=== PATIENT | female | born 1990 | race Caucasian/White ===

== ENCOUNTER 2018-07-23 20:19 | Emergency (ER) | payer OTHER ==
[~2018-07-23] VITALS: Ht 154.9 cm; Wt 54.4 kg
[2018-07-23 20:35] VITALS: BP 117/66
--- NOTE | 2018-07-23 20:45 | NUR ---
PT TRIAGED, VSS, SENT BACK TO [facility]
--- NOTE | 2018-07-23 21:30 | NUR ---
PATIENT AMBULATED TO ER BED 10.
--- NOTE | 2018-07-23 21:34 | NUR ---
27 Y/O F C/O ABSCESS ON L FOOT X2 WEEKS AND ABSCESS ON L FA X2 DAYS. PT REPORTS IV DRUG USE ON SITES. PT DENIES N/V/D; AAOX4, PERRL, WITH EVEN AND STEADY GAIT; LUNGS CLEAR BL, BREATHING UNLABORED; HR EVEN AND REGULAR, BL PERIPHERAL PULSES PRESENT; BS ACTIVE X4, NO TENDERNESS TO PALPATION, NO HEPATOSPLENOMEGALLY PALPATED, RESONANT TO PERCUSSION; PT DENIES ANY FEVER, CP, SOB, OR COUGH AT THIS TIME; PT STATES 7/10 PAIN AT THIS TIME; VSS; PATIENT POSITIONED FOR COMFORT; HOB ELEVATED; BEDRAILS UP X2; BED DOWN.
[2018-07-23] MEDS ORDERED: KETOROLAC 60 MG/2 ML VIAL IM ONE (21:45)
[2018-07-23] MEDS ORDERED: LIDOCAINE 1% 500 MG/50 ML VIAL INJ SCH (21:45)
[2018-07-23] MEDS ORDERED: CLINDAMYCIN 600 MG/4 ML VIAL IM ONE (21:45)
[2018-07-23] MEDS ORDERED: LIDOCAINE MPF 1% 5mL VIAL ONE (21:58)
--- NOTE | 2018-07-23 22:00 | NUR ---
DR. SCOTT AT BEDSIDE DOING I&D
--- NOTE | 2018-07-23 22:23 | NUR ---
PTS WOUND ON LEFT FOOT AND RIGHT FOREARM COVERRED WITH NON ADHIRINT GAUZE AND WRAPPED WITH ROLL GAUZE
--- NOTE | 2018-07-23 22:35 | NUR ---
Kita zamorano in ED - 07/23/18 at 2236 by MEDDCV PT WILL RECEIVE NEW MEDICATIONS BEFORE D/C. AWAITING ORDERS FROM .
[2018-07-23 22:42] VITALS: BP 126/69
--- NOTE | 2018-07-23 22:43 | NUR ---
Patient discharged with v/s stable. Written and verbal after care instructions given and explained. Patient alert, oriented and verbalized understanding of instructions. Ambulatory with steady gait. All questions addressed prior to discharge. ID band removed. Patient advised to follow up with PMD. Rx of BACTRIM, IBUPROPHEN given. Patient educated on indication of medication including possible reaction and side effects. Opportunity to ask questions provided and answered.
== END 2018-07-23 22:43 | disposition home or self-care (01) ==
LOC: MED 20:19
DX: L02.612 Cutaneous abscess of left foot (principal); L02.413 Cutaneous abscess of right upper limb; F17.210 Nicotine dependence, cigarettes, uncomplicated
CPT/HCPCS: 10061; 90471; 90715; 96372; 99284; J1885; J2001; J3490

== ENCOUNTER 2019-04-05 16:36 | Emergency (ER) | payer OTHER ==
[~2019-04-05] VITALS: Ht 154.9 cm; Wt 49.9 kg
--- NOTE | 2019-04-05 16:58 | NUR ---
NO ANSWER IN ER LOBBY
[2019-04-05 17:31] VITALS: BP 131/77
--- NOTE | 2019-04-05 17:34 | NUR ---
URINE CUP HANDED TO PT FOR SAMPLE
--- NOTE | 2019-04-05 18:43 | NUR ---
PATIENT LEFT WITHOUT BEING SEEN BY DR. PAREDES. NO FURTHER CARE PROVIDED FOR PATIENT.
--- NOTE | 2019-04-05 18:58 | NUR ---
PT TAKEN TO X-RAY.
--- NOTE | 2019-04-05 21:41 | NUR ---
CALLED FOR PT, NO ANSWER IN ER LOBBY OR OUTSIDE OF ER, PT LWBS
--- NOTE | 2019-04-05 21:58 | NUR ---
CALLED FOR PT FOR SECOND TIME, NO ANSWER IN ER LOBBY OR OUTSIDE OF ER
--- NOTE | 2019-04-05 22:10 | NUR ---
CALLED FOR PT FOR THIRD TIME, NO ANSWER IN ER LOBBY OR OUTSIDE OF ER
== END 2019-04-05 21:40 | disposition left against medical advice (07) ==
LOC: MED 16:36
DX: M25.561 Pain in right knee (principal); Z53.21 Procedure and treatment not carried out due to patient leaving prior to being seen by health care provider
CPT/HCPCS: 73562; 99281

== ENCOUNTER 2019-04-05 23:25 | Emergency (ER) | payer OTHER ==
[~2019-04-05] VITALS: Ht 154.9 cm; Wt 49.9 kg
[2019-04-05 23:45] VITALS: BP 120/74
--- NOTE | 2019-04-05 23:48 | NUR ---
to lobby a/w bed via wheelchair
--- NOTE | 2019-04-06 01:14 | NUR ---
28 y/o female c/o right leg pain x today at 1300. rates pain 10/10 and describes to as sharp pain on the right knee. denies any injury,truama, or falls. a & o x4. vss. unable to ambulate d/t pain. wheelchaired in. tenderness to touch on right knee. right knee shows swollen,redness. lung sounds clear all throughout. heart sound s1s2 present. nka. omh: preclampsia, gdm.
--- NOTE | 2019-04-06 01:14 | NUR ---
BIB WHEELCHAIR TO ER BED 1
[2019-04-06] MEDS ORDERED: NACL 0.9% 1,000 ML IV SCH (02:13)
[2019-04-06] MEDS ORDERED: KETOROLAC 30 MG/ML VIAL IVP ONE (02:15)
[2019-04-06 03:12] LABS: BASOPHILS # (AUTO) 0.1 K/uL (0.00-0.22); BASOPHILS % (AUTO) 0.5 % (0.0-2.0); EOSINOPHILS # (AUTO) 0.1 K/uL (0-0.4); EOSINOPHILS % (AUTO) 0.4 % (0.0-4.0); HEMATOCRIT 37.2 % (36-48); LYMPHOCYTES # (AUTO) 1.7 K/uL (2.5-16.5); LYMPHOCYTES % (AUTO) 11.1 % (20.5-51.1); MEAN CORPUSCULAR HEMOGLOBIN 27 pg (27-31); MEAN CORPUSCULAR HGB CONC 32 g/dL (33-37); MONOCYTES # (AUTO) 1.6 K/uL (0.8-1.0); MONOCYTES % (AUTO) 10.5 % (1.7-9.3); NEUTROPHILS # (AUTO) 12.1 K/uL (1.8-7.7); NEUTROPHILS % (AUTO) 77.5 % (42.2-75.2); PLATELET COUNT (AUTO) 312 K/uL (140-450); RED BLOOD CELL COUNT(AUTO) 4.43 MIL/uL (4.20-5.40); WHITE BLOOD COUNT (AUTO) 15.7 K/uL (4.8-10.8)
--- NOTE | 2019-04-06 03:47 | NUR ---
PT TRANSFER TO CT VIA W/C.
[2019-04-06 03:50] LABS: APPEARANCE,URINE CLEAR (CLEAR); BILIRUBIN,URINE NEGATIVE (NEGATIVE); BLOOD, URINE NEGATIVE (NEGATIVE); COLOR,URINE YELLOW (YELLOW); LEUKOCYTE ESTERASE ,URINE NEGATIVE (NEGATIVE); NITRITE, URINE NEGATIVE (NEGATIVE); UGLUCOSE NEGATIVE (NEGATIVE)
[2019-04-06] MEDS ORDERED: VANCOMYCIN 1,000 MG in DEXTROSE 5% 250 ML IV ONE (04:20)
[2019-04-06 04:24] LABS: ANION GAP 14.1 (8-16); CARBON DIOXIDE 25.9 mmol/L (21-32); CREATININE 0.6 mg/dL (0.6-1.3)
[2019-04-06 04:27] LABS: ALBUMIN 3.1 g/dL (3.4-5.0)
[2019-04-06] MEDS ORDERED: VANCOMYCIN 1,000 MG VIAL ONE (04:47)
[2019-04-06 04:49] LABS: TOTAL BILIRUBIN 0.2 mg/dL (0.0-1.0)
--- NOTE | 2019-04-06 07:17 | NUR ---
Pt report given to SHANNON GARCIA. Transfer of care at this time.
--- NOTE | 2019-04-06 07:18 | NUR ---
RECEIVED REPORT. PT SLEEPING BUT AROUSABLE WITH NAME STIMULI. PT STATED PAIN RELIEVED. VITALS IN NORMAL RANGE.
[2019-04-06] MEDS ORDERED: LIDOCAINE MPF 1% 10 MG/ML VIAL INJ ONE (09:00)
--- NOTE | 2019-04-06 10:23 | NUR ---
Dr. Rothman is evaluating the patient at bedside.
[2019-04-06] MEDS ORDERED: MORPHINE SULFATE 4 MG/ML SYR IVP ONE ×2 (10:30→15:45)
--- NOTE | 2019-04-06 13:22 | NUR ---
PT RESTING IN BED. STATED PAIN RELIEVED .
[2019-04-06] MEDS ORDERED: LORazepam 2 MG/ML VIAL IVP ONE (15:45)
[2019-04-06 16:09] VITALS: BP 97/46
--- NOTE | 2019-04-06 16:22 | NUR ---
[facility] at bedside for transfer.
--- NOTE | 2019-04-06 16:32 | NUR ---
CALL[place] [facility] [place] GIVEN TO ISABELLE ORTEGA.
--- NOTE | 2019-04-06 16:35 | NUR ---
REPORT GIVEN TO TRANSPORTATION TEAM RN. PT VITALS STABLE AT THIS TIME.
[2019-04-08 06:07] LABS: CHLAMYDIA TRACHOMATIS AMP DNA Negative (Negative)
== END 2019-04-06 16:35 | disposition short-term general hospital (02) ==
LOC: MED 23:25
DX: M00.861 Arthritis due to other bacteria, right knee (principal); F17.210 Nicotine dependence, cigarettes, uncomplicated
CPT/HCPCS: 36415; 71045; 73700; 80053; 81003; 81025; 83605; 85025; 85651; 86140; 87040; 87491; 96361; 96365; 96366; 96375; 96376; 99285; J1885; J2001; J2060; J2270; J3370; J7030; Q0092

== ENCOUNTER 2020-03-22 15:44 | Emergency (ER) | payer OTHER ==
[~2020-03-22] VITALS: Ht 154.9 cm; Wt 49.9 kg
[2020-03-22 15:52] VITALS: BP 119/54
[2020-03-22] MEDS ORDERED: LIDOCAINE MPF 1% 10 MG/ML VIAL INJ ONE (15:55)
[2020-03-22] MEDS ORDERED: IBUPROFEN 600 MG TAB PO ONE (15:55)
--- NOTE | 2020-03-22 15:55 | NUR ---
C/O LAC WOUND TO RIGHT IDEX FINGER S/O CUT BY GLASS CUP X TODAY. PMH:DENIES
--- NOTE | 2020-03-22 16:04 | NUR ---
PTS FINGER LAC WAS CLEAND WITH NS AND BETADINE. PTS PMSC WNL.
[2020-03-22] MEDS ORDERED: IBUPROFEN 600 MG TAB ONE (17:03)
[2020-03-22 17:15] VITALS: BP 119/54
--- NOTE | 2020-03-22 17:15 | NUR ---
Patient discharged with v/s stable. Written and verbal after care instructions given and explained. Patient alert, oriented and verbalized understanding of instructions. Ambulatory with steady gait. All questions addressed prior to discharge. ID band removed. Patient advised to follow up with PMD. Rx of BACITRACIN & IBUPROFEN given. Patient educated on indication of medication including possible reaction and side effects. Opportunity to ask questions provided and answered.
== END 2020-03-22 17:15 | disposition home or self-care (01) ==
LOC: MED 15:44
DX: S61.210A Laceration without foreign body of right index finger without damage to nail, initial encounter (principal); W25.XXXA Contact with sharp glass, initial encounter; Y93.89 Activity, other specified; Y92.89 Other specified places as the place of occurrence of the external cause; Y99.8 Other external cause status
CPT/HCPCS: 12001; 73140; 90715; 99283; J2001

== ENCOUNTER 2022-02-01 17:05 | Emergency (ER) | payer OTHER ==
[~2022-02-01] VITALS: Ht 154.9 cm; Wt 55.1 kg
[2022-02-01 17:47] VITALS: BP 109/66
[2022-02-01] MEDS ORDERED: PRED20TA5 PO (18:14)
[2022-02-01] MEDS ORDERED: KEN.025C TP (18:14)
--- NOTE | 2022-02-01 18:17 | NUR ---
BIB SELF C/O GORDY ARMS, LEGS RASH X 3 WEEKS. DENIES N/V/D;AAOX4 WITH EVEN AND STEADY GAIT; LUNGS CLEAR BL; HR EVEN AND REGULAR; PT DENIES ANY FEVER, CP, SOB, OR COUGH AT THIS TIME; PATIENT STATES PAIN OF 0/10 AT THIS TIME.
[2022-02-01 18:21] VITALS: BP 109/66
--- NOTE | 2022-02-01 18:21 | NUR ---
Patient discharged with v/s stable. Written and verbal after care instructions given and explained. Patient alert, oriented and verbalized understanding of instructions. Ambulatory with steady gait. All questions addressed prior to discharge. ID band removed. Patient advised to follow up with PMD. Rx of DELTASONE & KENALOG given. Patient educated on indication of medication including possible reaction and side effects. Opportunity to ask questions provided and answered.
== END 2022-02-01 18:21 | disposition home or self-care (01) ==
LOC: MED 17:05
DX: L30.9 Dermatitis, unspecified (principal); Z79.899 Other long term (current) drug therapy
CPT/HCPCS: 99283

== ENCOUNTER 2022-08-09 20:17 | Emergency (ER) | payer OTHER ==
[~2022-08-09] VITALS: Ht 154.9 cm; Wt 49.9 kg
[~2022-08-09 20:17] MED LIST: KEN.025C TP; PRED20TA5 PO
[2022-08-09 21:10] VITALS: BP 123/85
--- NOTE | 2022-08-09 21:13 | NUR ---
TO LOBBY A/W BED AMBULATORY
[2022-08-09 21:49] LABS: APPEARANCE,URINE CLEAR (CLEAR); BILIRUBIN,URINE NEGATIVE (NEGATIVE); BLOOD, URINE NEGATIVE (NEGATIVE); COLOR,URINE YELLOW (YELLOW); LEUKOCYTE ESTERASE ,URINE NEGATIVE (NEGATIVE); NITRITE, URINE NEGATIVE (NEGATIVE); UGLUCOSE NEGATIVE (NEGATIVE)
--- NOTE | 2022-08-09 22:18 | NUR ---
PT TO 6
--- NOTE | 2022-08-09 22:26 | NUR ---
ASSUMED CARE . PT HERE FOR EVAL FOR POSS BLADDER INFECTION . +_ DYSURIA, NO HEMATURIA OR FEVER , PAIN DURING SEXUAL INTERCOURSE. MD AT TO EXAMINE
[2022-08-09] MEDS ORDERED: ACETAMINOPHEN 325 MG TAB PO ONE (22:35)
--- NOTE | 2022-08-09 22:53 | NUR ---
PELVIC SET UP DONE
--- NOTE | 2022-08-09 23:16 | NUR ---
ULTRASOUND AT BEDSIDE
--- NOTE | 2022-08-10 00:03 | NUR ---
DR ANGLIN AT BS TO PERFORM PELVIC EXAM ,ABDULAZIZ ORTEGA TO ASSIST, TITO WELL
[2022-08-10] MEDS ORDERED: NAPR-54 PO (01:31)
--- NOTE | 2022-08-10 01:42 | NUR ---
Patient discharged with v/s stable. Written and verbal after care instructions given and explained. Patient verbalized understanding. Ambulatory with steady gait. All questions addressed prior to discharge. Advised to follow up with PMD.
== END 2022-08-10 01:42 | disposition home or self-care (01) ==
LOC: MED 20:17
DX: R10.2 Pelvic and perineal pain (principal); R32 Unspecified urinary incontinence; R82.998 Other abnormal findings in urine; Z79.899 Other long term (current) drug therapy; Z79.1 Long term (current) use of non-steroidal anti-inflammatories (NSAID)
CPT/HCPCS: 76856; 81003; 81025; 87210; 87491; 93976; 99284; Q0092

== ENCOUNTER 2022-08-19 17:50 | Emergency (ER) | payer OTHER ==
[~2022-08-19] VITALS: Ht 154.9 cm; Wt 49.9 kg
[~2022-08-19 17:50] MED LIST changes: +NAPR-54 PO
[2022-08-19 18:06] VITALS: BP 97/75
--- NOTE | 2022-08-19 18:47 | NUR ---
DR BURNETT ATTEMPTED TO BRING PT BACK X4 TIMES. NO ANSWER
[2022-08-19] MEDS ORDERED: VANCOMYCIN 1,000 MG in DEXTROSE 5% 250 ML IV ONE (19:00)
[2022-08-19] MEDS ORDERED: NACL 0.9% 1,000 ML IV ONE (19:00)
[2022-08-19 19:38] LABS: BASOPHILS # (AUTO) 0.1 K/uL (0.00-0.22); BASOPHILS % (AUTO) 0.5 % (0.0-2.0); EOSINOPHILS # (AUTO) 0.2 K/uL (0-0.4); EOSINOPHILS % (AUTO) 0.8 % (0.0-4.0); HEMATOCRIT 45.9 % (36-48); HEMOGLOBIN 15.1 g/dL (12.0-16.0); LYMPHOCYTES # (AUTO) 2.6 K/uL (2.5-16.5); MEAN CORPUSCULAR HEMOGLOBIN 29 pg (27-31); MEAN CORPUSCULAR HGB CONC 33 g/dL (33-37); MEAN CORPUSCULAR VOLUME 86.9 fL (80-94); MONOCYTES # (AUTO) 1.6 K/uL (0.8-1.0); MONOCYTES % (AUTO) 8.4 % (1.7-9.3); NEUTROPHILS # (AUTO) 14.2 K/uL (1.8-7.7); NEUTROPHILS % (AUTO) 76.3 % (42.2-75.2); PLATELET COUNT (AUTO) 285 K/uL (140-450); RED BLOOD CELL COUNT(AUTO) 5.28 MIL/uL (4.20-5.40); RED CELL DISTRIBUTION WIDTH 14.5 % (11.6-13.7); WHITE BLOOD COUNT (AUTO) 18.6 K/uL (4.8-10.8)
--- NOTE | 2022-08-19 19:40 | NUR ---
Pt ambulatory to ED RM 12.
[2022-08-19 20:06] LABS: ALBUMIN 3.7 g/dL (3.4-5.0); ANION GAP 12.5 (8-16); CARBON DIOXIDE 29.4 mmol/L (21-32); CREATININE 0.8 mg/dL (0.6-1.3); POTASSIUM 3.9 mmol/L (3.5-5.1); TOTAL BILIRUBIN 0.3 mg/dL (0.0-1.0)
[2022-08-19] MEDS ORDERED: VANCOMYCIN 1,000 MG VIAL ONE (20:24)
--- NOTE | 2022-08-19 20:40 | NUR ---
Pt medicated as ordered; tolerating well at this time.
[2022-08-19 22:05] VITALS: BP 104/80
[2022-08-19] MEDS ORDERED: SULF-59 PO (22:19)
[2022-08-19] MEDS ORDERED: CEPH-588 PO (22:19)
--- NOTE | 2022-08-19 22:25 | NUR ---
PT D/C BY DR. BURNETT. ALL INSTRUCTIONS AND MEDICAITON ADMIN PROVIDED BY DR. BURNETT. RX OF KEFLEX AND BACTRIM GIVEN.
== END 2022-08-19 22:25 | disposition home or self-care (01) ==
LOC: MED 17:50
DX: L03.211 Cellulitis of face (principal); Z79.899 Other long term (current) drug therapy
CPT/HCPCS: 36415; 80053; 83605; 85025; 87040; 96365; 99284; J3370; J7030

== ENCOUNTER 2023-05-26 16:49 | Emergency (ER) | payer OTHER ==
[~2023-05-26] VITALS: Ht 154.9 cm; Wt 54.4 kg
[~2023-05-26 16:49] MED LIST changes: +CEPH-588 PO; +SULF-59 PO
[2023-05-26 17:15] VITALS: BP 90/65; PULSE 128; RESP 20; TEMP 98.1; O2SAT 97
[2023-05-26] MEDS ORDERED: IBUP-2213 PO (17:59)
[2023-05-26] MEDS ORDERED: CEPH-588 PO (17:59)
[2023-05-26] MEDS ORDERED: SULF-59 PO (17:59)
[2023-05-26] MEDS: IBUPROFEN 600 MG TAB PO ONE (18:18)
[2023-05-26 18:42] VITALS: BP 119/76; PULSE 99; RESP 16; TEMP 98.2; O2SAT 99
== END 2023-05-26 18:41 | disposition home or self-care (01) ==
LOC: MED 16:49
DX: L03.115 Cellulitis of right lower limb (principal); Z79.899 Other long term (current) drug therapy
CPT/HCPCS: 81025; 99283